=== PATIENT | female | born 1975 | race Caucasian/White ===

== ENCOUNTER 2017-02-08 09:32 | Day surgery (SDC) | payer BC ==
[2017-02-05 21:01] LABS: BASOPHILS 0.2 %; BASOPHILS ABSOLUTE 0.02 10/3/uL (0.0-0.16); EOSINOPHILS 2.7 %; EOSINOPHILS ABSOLUTE 0.25 10/3/uL (0.0-0.53); HEMATOCRIT 40.6 % (36.0-48.0); HEMOGLOBIN 13.2 g/dL (12.0-16.0); IMMATURE GRANULOCYTES 0.1 %; IMMATURE GRANULOCYTES ABSOLUTE 0.01 10/3/uL (0.0-0.11); LYMPHOCYTES 29.9 %; LYMPHOCYTES ABSOLUTE 2.75 10/3/uL (0.67-4.30); MANUAL DIFF NO %; MEAN CORPUS HGB CONC 32.5 g/dL (32.0-36.0); MEAN CORPUSCULAR HEMOGLOB 30.6 pg (26.0-34.0); MEAN PLATELET VOLUME 9.2 fL (9.2-13.0); MONOCYTES 8.5 %; MONOCYTES ABSOLUTE 0.78 10/3/uL (0.21-1.20); NEUTROPHILS 58.6 %; NEUTROPHILS ABSOLUTE 5.38 10/3/uL (2.02-8.40); PLATELET COUNT 346 10/3/uL (150-400); RBC DISTRIBUTION WIDTH 14.4 % (12.0-16.0); RED CELL COUNT 4.32 10/6/uL (4.0-5.6); WHITE BLOOD CELLS 9.2 10/3/uL (4.5-10.5)
[2017-02-05 21:29] LABS: A/G RATIO 1.1 (0.7-1.9); ALBUMIN 3.6 G/DL (3.5-5.0); ALKALINE PHOSPHATASE 114 U/L (45-117); CALCIUM, SERUM 8.5 MG/DL (8.5-10.4); CHLORIDE, SERUM 108 MMOL/L (96-112); CO2 (CARBON DIOXIDE) 28 MMOL/L (24-34); CREATININE 0.65 MG/DL (0.55-1.02); GFR AFRICAN AMERICAN 127 ML/MIN (>=60); GFR NON AFRICAN AMERICAN 110 ML/MIN (>=60); GLOBULIN 3.3 G/DL (2.5-4.1); GLUCOSE, SERUM 82 MG/DL (60-99); POTASSIUM, SERUM 4.3 MMOL/L (3.5-5.3); SGOT(AST) 13 U/L (5-40); SGPT(ALT) 23 U/L (5-65); SODIUM, SERUM 142 MMOL/L (135-148); TOTAL BILIRUBIN 0.2 MG/DL (0-1.2); TOTAL PROTEIN 6.9 G/DL (6.0-8.5)
[2017-02-05 21:30] LABS: BUN (BLOOD UREA NITROGEN) 14 MG/DL (6-23)
--- NOTE | ~2017-02-08 | OP ---
Record Of Operation [facility] [address] [place]. [address] NAME: SANTIAGO KEVIN : 73 STATUS : [facility]#: [id number] AGE: 41 ADM/REG DATE : 02/08/17 MR#: [id number] REPORT SERV DATE: 02/08/17 DICTATED BY: ANAI TANG III DATE: 02/08/17 REPORT STATUS : Draft TRANSCRIBED BY: MODRay DATE: 02/08/17 DATE OF PROCEDURE: 02/08/2017 PREOPERATIVE DIAGNOSIS: Symptomatic cholelithiasis and cholecystitis. POSTOPERATIVE DIAGNOSIS: Symptomatic cholelithiasis and cholecystitis. PROCEDURE: Laparoscopic cholecystectomy. ANESTHESIA: General with intubation. COMPLICATIONS: None. ESTIMATED BLOOD LOSS: Less than 30 mL. SPECIMENS: Gallbladder. DRAINS: None. LAP AND SPONGE COUNT: Correct x3. BRIEF HISTORY: This 41-year-old female presented with evidence for symptomatic cholelithiasis and cholecystitis. It was felt that laparoscopic cholecystectomy, possible laparotomy, was indicated. This procedure, the risks, benefits, and alternatives, including but not limited to the risk for bleeding, infection, common bile duct injury, bile leak, retained common bile stone, enterotomy, or injury to any abdominal structure, the definite possible need for laparotomy, possible persistence of her symptoms unrelieved by surgery, possibility of postoperative diarrhea or incisional hernia, and unforeseen complications including deep venous thrombosis, pulmonary embolus, myocardial infarction, stroke, pneumonia, and , have been fully explained the patient prior to surgery. The fact that this was a major operation with risk for major morbidity, mortality, and no guarantee for relief of her symptoms were explained to her. The expected length of recovery with open laparoscopic procedures was explained. The patient had questions, which were answered. She fully understood the risks and agreed to surgery as planned. FINDINGS: The patient's gallbladder glover were thickened and inflamed. There were dense adhesions between the gallbladder and omentum consistent with cholecystitis. The liver and remainder of the upper abdomen were otherwise unremarkable as far as we could determine through the laparoscope. DETAILS OF PROCEDURE: After being appropriately identified and after discussing the risks of surgery with the patient and her family in the preoperative area, the patient was taken to the operating room and placed in the supine position on the operating room table. General anesthesia was administered. She was intubated without difficulty. The abdomen was prepped and draped sterilely in the usual fashion. After an appropriate "time-out" per [facility] standards, a small transverse incision was made below the umbilicus. The skin and fascia on Record Of Operation [facility] [address] [place]. [address] NAME: SANTIAGO KEVIN : 73 STATUS : [facility] PAT#: [id number] AGE: 41 ADM/REG DATE : 02/08/17 MR#: [id number] REPORT SERV DATE: 02/08/17 DICTATED BY: ANAI TANG III DATE: 02/08/17 REPORT STATUS : Draft TRANSCRIBED BY: MODL DATE: 02/08/17 either side was elevated with towel clips. A Veress needle was placed through the incision into the peritoneal cavity. Correct position of the needle in the peritoneal cavity was confirmed by the hanging drop test. The abdominal cavity was then insufflated to about 13 mmHg with carbon dioxide. Correct position of air in the peritoneal cavity was confirmed by palpation. The Veress needle was removed and replaced with 10 mm trocar. The laparoscope was placed through this. The patient was placed in the reverse Trendelenburg position and to her left. A second 10 mm trocar was placed just below the xiphoid process, to the right of the falciform ligament, under direct vision with the laparoscope. Two 5 mm trocars were placed along the right subcostal margin, one in the midaxillary line, the other in the midclavicular line. These were also placed under direct vision with the laparoscope. The upper abdomen was inspected. The gallbladder appeared to be chronically diseased. The gallbladder glover were thickened and inflamed consistent chronic cholecystitis. The liver and remainder of the upper abdomen were otherwise unremarkable as far as we could determine through the laparoscope. The appropriate instruments were placed through the trocars. The gallbladder was grasped and the infundibulum of the gallbladder was retracted laterally and inferiorly so as to expose the triangle of Calot. Using careful sharp and blunt dissection, the cystic duct was carefully and meticulously defined proximally and distally. The cystic duct was fairly long. The junction of the cystic duct with the common bile duct was appreciated, but not skeletonized. The cystic artery was similarly defined proximally and distally. The fibrous and fatty tissue between these structures was divided so as to clearly identify the critical angle. Once these structures were clearly defined, the cystic duct was clipped using two clips on the common bile duct side and one on the gallbladder side, all placed as close to the gallbladder as possible, taking care not encroach upon or injure the common bile duct in any way. The cystic duct was then divided between these clips as close to the gallbladder as possible. We elected not to perform a cholangiogram because there was no preoperative or intraoperative evidence for biliary dilatation and because the patient's preoperative liver enzymes were normal and because her biliary anatomy was clearly defined. Again, the structure was not divided or clipped until the critical angle and triangle of Calot had been clearly identified. The cystic artery was then similarly clipped and divided as close to the gallbladder as possible. Using the spatula and the cautery, the gallbladder was carefully dissected from the liver bed. This went very well. Before the gallbladder was completely removed, the gallbladder bed and portal areas were irrigated numerous times with saline. The saline was aspirated dry. This process was repeated several times until hemostasis was meticulously and thoroughly assured in all areas. It was also assured that the clips in the portal areas were in good position and there was no extravasation of bile from any accessory bile duct. Once this was assured, the gallbladder was completely dissected away from the liver and placed in the Endopouch. The liver bed was elevated, irrigated, and inspected for meticulous and thorough hemostasis and for absence of any biliary extravasation and to be certain that the clips were in good position. Once this was assured, the gallbladder and Endopouch were brought out through the infraumbilical incision and placed in the laparoscope through the subxiphoid port. The fascia of the infraumbilical incision was closed with 0 Vicryl suture. The lateral two trocars were removed. These two lower trocar sites were inspected on the underside for hemostasis with the laparoscope. Once this was assured, the subxiphoid trocar was removed under direct vision with the laparoscope to assure hemostasis in this incision. The air was removed from the peritoneal cavity through this incision. The skin incisions were inspected for hemostasis, they were closed with running subcuticular 4-0 Monocryl stitches. They were Record Of [address] [place]. [address] NAME: SANTIAGO KEVIN : 73 STATUS : [facility] PAT#: [id number] AGE: 41 ADM/REG DATE : 02/08/17 MR#: [id number] REPORT SERV DATE: 02/08/17 DICTATED BY: ANAI TANG III DATE: 02/08/17 REPORT STATUS : Draft TRANSCRIBED BY: EMERY DATE: 02/08/17 injected with one-half percent Marcaine. Dressings were applied. Anesthesia was reversed and the patient was taken to the recovery room in stable condition. The patient tolerated the procedure well. Her family was informed of the results of surgery. The patient will be discharged later when she is stable, comfortable and tolerating liquids and able to void and ambulate. Her family was advised that she should remain on a liquid diet today and advance this as tolerated to a regular diet tomorrow. She should keep wounds clean and dry for 48 hours and that she should not drive for 3 to 4 days after surgery or while using narcotics or Phenergan. They were advised that she should resume her usual medications. She was given a prescription for a narcotic and Phenergan, which she was advised to not take while driving. She was asked to return to the office in two weeks for followup or sooner for nausea, vomiting, fever, chills, wound drainage, abdominal pain, weakness, or other problems prior to that time. NELSON/EMERY Anai Tang III, M.D. / [id number] CC: Diana Lopez III, M.D.
--- NOTE | ~2017-02-08 | PREOPHP ---
PreOp History and Physical [id number] [place]. [address] NAME: SANTIAGO KEVIN : 73 STATUS : PRE [facility]#: [id number] AGE: 41 ADM/REG DATE : MR#: [id number] REPORT SERV DATE: 02/07/17 DICTATED BY: ANAI TANG III DATE: 01/31/17 REPORT STATUS : Draft TRANSCRIBED BY: MODL DATE: 01/31/17 HISTORY OF PRESENT ILLNESS: This 41-year-old female comes to the operating room for laparoscopic cholecystectomy, possible laparotomy, for symptomatic cholelithiasis and cholecystitis. The patient complains of chronic history of intermittent episodes of nausea and vomiting after eating. She describes upper abdominal pain and bloating. These symptoms have been ongoing chronically. The patient has gallstones and felt to have symptomatic cholelithiasis and cholecystitis. She comes to the operating room now for laparoscopic cholecystectomy, possible laparotomy. PAST MEDICAL HISTORY: Unremarkable. MEDICATIONS: Acyclovir. ALLERGIES: NONE. PAST SURGICAL HISTORY: Status post section. FAMILY HISTORY: Unremarkable. SOCIAL HISTORY: The patient has a previous history of tobacco abuse. No history of alcohol use. REVIEW OF SYSTEMS: The patient's 14-point review of systems is otherwise unremarkable. PHYSICAL EXAMINATION: GENERAL: Reveals an obese female, in no acute distress. She is alert and oriented x3. VITAL SIGNS: Blood pressure 108/77, pulse 70, temperature 98.2. HEENT: Unremarkable. Cranial nerves 2 through 12 normal. LUNGS: Clear. CARDIAC: Normal. ABDOMEN: Soft. Nontender. No masses. LABORATORY: Abdominal ultrasound shows a 2 cm gallstone. ASSESSMENT: 41-year-old female with symptomatic cholelithiasis and cholecystitis and recurrent episodes of biliary colic. PLAN: The patient has been offered the option of surgical intervention, i.e. laparoscopic cholecystectomy, possible laparotomy, versus observation. The pros and cons, advantages and disadvantages were discussed. The patient wishes to proceed with surgery. She comes to the operating room now for laparoscopic cholecystectomy, possible laparotomy. This procedure, the risks, benefits, and alternatives, including not limited to the risk for bleeding, infection, common bile duct injury, bile leak, retained common bile duct stone, enterotomy, or injury to any abdominal structure, the definite possible need for laparotomy, possible persistence of her symptoms unrelieved by surgery, possibility of postoperative diarrhea or incisional hernia, and unforeseen complications including deep venous thrombosis, pulmonary PreOp History and Physical [address] [address] NAME: SANTIAGO KEVIN : 73 STATUS : PRE [facility] PAT#: [id number] AGE: 41 ADM/REG DATE : MR#: [id number] REPORT SERV DATE: 02/07/17 DICTATED BY: ANAI TANG III DATE: 01/31/17 REPORT STATUS : Draft TRANSCRIBED BY: EMERY DATE: 01/31/17 embolus, myocardial infarction, stroke, pneumonia, and , have been explained to the patient prior to surgery. The fact that this is a major operation with risk for major morbidity mortality, no guarantee for relief of her symptoms has been explained to her. The expected length of recovery with both open and laparoscopic procedures has been explained. The patient's questions have been answered. She understands the risks and agrees to surgery as planned. NELSON/EMERY Anai Tang III, M.D. / [id number]
--- NOTE | ~2017-02-08 | PREOPHP ---
PreOp History and Physical [id number] [place]. [address] NAME: SANTIAGO KEVIN : 73 STATUS : [facility]#: [id number] AGE: 41 ADM/REG DATE : 02/08/17 MR#: [id number] REPORT SERV DATE: 02/12/17 DICTATED BY: ANAI YOUNG III DATE: 02/06/17 REPORT STATUS : Cancelled TRANSCRIBED BY: MODRay DATE: 02/06/17 HISTORY OF PRESENT ILLNESS: This 50-year-old female comes to the operating room for a left modified radical mastectomy and simple right mastectomy, for biopsy-proven invasive cancer of the left breast. The patient was diagnosed with a cancer of the left breast in September of this year. At that time, she noticed a lump in her left breast. Further workup revealed a cancer at the 4 and 5 o'clock positions of the left breast. The patient is status post neoadjuvant chemotherapy. She had prior to chemotherapy biopsy of left axillary lymph node, which was suspicious and found to confirm malignancy. The patient is status post neoadjuvant chemotherapy. She has elected to have bilateral mastectomy. She comes now for left modified radical mastectomy with simple right mastectomy. Immediate reconstruction will be performed per Dr. Marques. PAST MEDICAL HISTORY: Unremarkable. PAST SURGICAL HISTORY: Includes Jose fundoplication, knee surgery, and breast augmentation. MEDICATIONS: Cymbalta. FAMILY HISTORY: Positive for prostate cancer. SOCIAL HISTORY: No history of tobacco or alcohol use. ALLERGIES: NONE. REVIEW OF SYSTEMS: The patient's 14-point review of systems is, otherwise, unremarkable. PHYSICAL EXAMINATION: GENERAL: This is a female, in no acute distress. She is alert and oriented x3. HEENT: Unremarkable. NECK: Unremarkable without adenopathy. NEURO: Cranial nerves II through XII are normal. LUNGS: Clear. CARDIAC: Normal. ABDOMEN: Soft and nontender. EXTREMITIES: Normal. BREASTS: Revealed bilateral breast implants. The patient initially had a palpable mass at the 4 o'clock position about 1.5 cm in size. This mass is no longer palpable after chemotherapy. The right breast is unremarkable. No palpable masses or nodules. The right nipple is normal without any discharge. The right axilla is normal without adenopathy. LABORATORY DATA: Preoperative imaging studies showed no evidence for metastatic disease. Bilateral mammogram showed four separate lateral left breast nodules suspicious for carcinoma. Two of these were biopsied and found to be malignant. There was noted to be a PreOp History and Physical [address] [address] NAME: SANTIAGO KEVIN : 73 STATUS : [facility] PAT#: [id number] AGE: 41 ADM/REG DATE : 02/08/17 MR#: [id number] REPORT SERV DATE: 02/12/17 DICTATED BY: ANAI YOUNG III DATE: 02/06/17 REPORT STATUS : Cancelled TRANSCRIBED BY: EMERY DATE: 02/06/17 suspicious left axillary lymph node, which was biopsied and found to be malignant as well. ASSESSMENT: A 50-year-old female with invasive left breast cancer, stage IIB, status post neoadjuvant chemotherapy. PLAN: The patient comes to the operating room now for left modified radical mastectomy with simple right mastectomy. Bilateral reconstruction will be performed. This procedure, the risks, benefits, and alternatives including but not limited to the risk for bleeding, infection, pain, swelling, scarring, deformity to either or both areas, seroma formation, hematoma formation, nerve injury, chronic paresthesia, pain in the arm, shoulder, or axilla on either or both sides, chronic lymphedema on either or both sides, and unforeseen complications including deep venous thrombosis, pulmonary embolus, myocardial infarction, stroke, pneumonia, , have been fully explained to the patient prior to surgery. The option of breast conservative therapy has been offered to the patient, but declined. The patient's questions have been answered. She clearly understands the risks and agrees to surgery as planned. NELSON/EMERY Anai Young III, M.D. / [id number]
[~2017-02-08 09:32] MED LIST: PEPTO BISMOL LIQ1 ML PO
[2017-02-08 18:09] LABS: HEMATOCRIT 42.1 % (36.0-48.0); HEMOGLOBIN 13.6 g/dL (12.0-16.0)
== END 2017-02-08 19:00 | disposition home or self-care (01) ==
LOC: SDC 09:32
PROVIDERS: Surgery
PROC: 0FT44ZZ Resection of Gallbladder, Percutaneous Endoscopic Approach (ICD-10-PCS; principal; 2017-02-08 11:30)
DX: K80.10 Calculus of gallbladder with chronic cholecystitis without obstruction (principal); G47.33 Obstructive sleep apnea (adult) (pediatric); K21.9 Gastro-esophageal reflux disease without esophagitis; Z98.890 Other specified postprocedural states; Z87.891 Personal history of nicotine dependence; Z88.5 Allergy status to narcotic agent; Z79.899 Other long term (current) drug therapy
CPT/HCPCS: 36415; 71020; 80053; 84703; 85014; 85018; 85025; 88304; 93005; A9270-GY; J0690; J1170; J2250; J2405; J2710; J3010